=== PATIENT | male | born 1960 | race Caucasian/White ===

== ENCOUNTER 2024-02-26 09:56 | Emergency (ER) | payer MEDICARE, SELFPAY ==
[2024-02-26 09:57] VITALS: BP 171/96; PULSE 70; RESP 14; TEMP 36.4; O2SAT 98; BMI 24.3
--- NOTE | 2024-02-26 10:12 | DI.CT.S_ITS ---
PROCEDURE: CT HEAD/BRAIN WO CON INDICATIONS: left sided numbness improving TECHNIQUE: Noncontrast 4.5 mm thick angled axial sections acquired from the foramen magnum to the vertex, with coronal and sagittal reformats. For radiation dose reduction, the following was used: automated exposure control, adjustment of mA and/or kV according to patient size. COMPARISON: [facility], CT, CT ANGIO HEAD AND NECK, 02/26/2024, 10:17. FINDINGS: Image quality: Mild streak artifact can be seen through the skull base. CSF spaces: Basal cisterns are patent. No extra-axial fluid collections. The ventricles are symmetric in size and shape. Brain: No intracranial bleeds or masses. There is cerebral volume loss for age, with resultant ventricular and sulcal prominence. There are periventricular and deep white matter chronic small vessel ischemic changes. There is intracranial internal carotid artery atherosclerosis. Skull and face: Calvarium and visualized facial bones appear intact, without suspicious lesions. Sinuses: Visualized sinuses and mastoids are clear. IMPRESSION: No acute intracranial hemorrhage is seen. No acute intracranial pathology. If there is strong clinical suspicion for an acute stroke, please consider a brain MRI for further evaluation, as it is more sensitive (assuming that there is no contraindication to MRI). Dictated by: Jhonathan Castellanos M.D. on 02/26/2024 at 9:37 Approved by: Jhonathan Castellanos M.D. on 02/26/2024 at 9:38
--- NOTE | 2024-02-26 10:12 | DI.CT.S_ITS ---
PROCEDURE: CT ANGIO HEAD AND NECK INDICATIONS: let sided numbess TECHNIQUE: After the administration of intravenous contrast, 1 mm thick sections acquired from the aortic arch through the [place] of [place]. 3-dimensional dwrsxfw-utwzeklaz-gbolhrpxll (MIP) and/or volume rendering reformats were acquired of the central intracranial vasculature and neck separately. For radiation dose reduction, the following was used: automated exposure control, adjustment of mA and/or kV according to patient size. COMPARISON: [facility], CT, CT HEAD/BRAIN WO CON, 02/26/2024, 10:17. FINDINGS: Image quality: There is streak artifact seen through the level of the shoulders. BRAIN: CSF spaces: Ventricles are normal in size and shape. Basal cisterns are patent. No extra-axial fluid collections. Brain: No significant abnormality of the brain can be seen. Skull and face: Calvarium and facial bones appear intact, without suspicious lesions. Orbits appear normal. Sinuses: Sinuses and mastoids are clear. HEAD CT ANGIOGRAPHY: Anterior circulation: Intracranial internal carotid arteries are normal in size and flow. The flow within the paired anterior cerebral arteries is normal and symmetric. The flow within the middle cerebral arteries is normal and symmetric. The anterior communicating artery is not well seen. No aneurysms are seen. Posterior circulation: Visualized portions of the vertebral arteries demonstrate normal caliber, and join to form a normal appearing basilar artery. There is a prominent left posterior communicating artery seen, with an accompanying diminutive left P1 segment. This is attributed to a type origin of the right posterior cerebral artery, which is considered to be a normal developmental variant of typically no clinical consequence. The flow within the posterior cerebral arteries is normal and symmetric. No aneurysms are seen. NECK CT ANGIOGRAPHY: Carotid system: The great vessels demonstrate a conventional anatomy as they arise from the aortic arch. The origins of the common carotid arteries appear patent. The common carotid arteries demonstrate normal caliber and courses. The bifurcation regions are both widely patent. The internal carotid arteries demonstrate normal calibers and courses. Posterior circulation: The origins of the vertebral arteries both appear widely patent. The more superior extracranial portions of both vertebral arteries also demonstrate normal courses and calibers. Soft tissues: Visualized neck soft tissues demonstrate no suspicious abnormalities. Bones: No suspicious bony lesions. Visualized cervical spine appears normally aligned. Moderate lower cervical spine degenerative change can be seen. IMPRESSION: No significant intracranial arterial abnormality is seen. No significant abnormality is seen within the arteries of the neck. Any quantitative measurements of stenosis were performed using NASCET criteria. Dictated by: Jhonathan Castellanos M.D. on 02/26/2024 at 9:39 Approved by: Jhonathan Castellanos M.D. on 02/26/2024 at 9:41
--- NOTE | 2024-02-26 10:13 | DI.RAD.S_ITS ---
PROCEDURE: XR CHEST 1V INDICATIONS: tia TECHNIQUE: One view of the chest was acquired. COMPARISON: None. FINDINGS: Surgical changes and devices: None. Lungs and pleura: Lungs are clear. No pleural effusions or pneumothorax. Mediastinum: Mediastinal contours appear normal. Heart size is normal. Bones and chest wall: No suspicious bony lesions. Overlying soft tissues appear unremarkable. IMPRESSION: No acute cardiopulmonary abnormality is seen. Dictated by: Imtiaz Arvizu M.D. on 02/26/2024 at 10:59 Approved by: Imtiaz Arvizu M.D. on 02/26/2024 at 10:59
[2024-02-26] MEDS: ASPIRIN 81 MG CHEW TAB 324 MG PO (10:19)
[2024-02-26 10:23] LABS: Add Manual Diff / Slide Review NO; Basophils Absolute Auto 100 /uL (0-100); Basophils Percent Auto 0.9 % (0-2); Eosinophils Absolute Auto 100 /uL (0-450); Eosinophils Percent Auto 2.1 % (2-4); Hematocrit 44.9 % (41-53); Hemoglobin 15.5 g/dL (13.5-17.5); Lymphocytes Absolute Auto 2100 /uL (1100-4500); Lymphocytes Percent Auto 36.4 % (25-40); Mean Corpuscular HGB Conc 34.5 % (30-36); Mean Corpuscular Hemoglobin 32.5 PG (26-34); Mean Corpuscular Volume 94.1 fL (80-100); Monocytes Absolute Auto 500 /uL (0-900); Monocytes Percent Auto 8.3 % (3-14); Neutrophils Absolute Auto 3100 /uL (1500-7000); Neutrophils Percent Auto 52.3 % (50-75); Platelet Count 210 X10^3/uL (150-400); Red Blood Cell Count 4.77 X10^6/uL (4.5-5.9); Red Cell Distribution Width 13.5 % (11.6-14.8); White Blood Cell Count 5.9 X10^3/uL (4.5-11.0)
[2024-02-26 10:35] LABS: Alanine Aminotransferase 35 IU/L (<50); Albumin 4.3 g/dL (3.5-5.0); Albumin Globulin Ratio 1.3 (1.0-2.8); Alkaline Phosphatase 53 U/L (38-126); Aspartate Aminotransferase 37 IU/L (17-59); Bilirubin Total 0.7 mg/dL (0.2-1.3); Blood Urea Nitrogen 20 mg/dL (9-20); Carbon Dioxide 25 mmol/L (22-32); Chloride 110 mmol/L (98-107); Creatine Kinase 260 U/L (55-170); Estimated Glomerular Filt Rate > 60 mL/min (>60); Globulin 3.4 g/dL (1.7-4.1); Glucose 84 mg/dL (80-110); HEMOLYSIS < 15 (0-50); Lipase 80 U/L (23-300); Potassium 4.3 mmol/L (3.4-5.1); Sodium 140 mmol/L (137-145); Total Protein 7.7 g/dL (6.3-8.2)
[2024-02-26 10:46] LABS: Troponin I < 0.012 ng/mL (0.01-0.034)
--- NOTE | 2024-02-26 10:47 | ED.NEUROSD ---
HPI - Neuro Symptoms/Deficit General Chief Complaint: Neuro Symptoms/Deficit Stated Complaint: thinks TIA does have a history of TIA Time Seen by Provider: 02/26/24 10:00 Source: patient and family Mode of arrival: Ambulatory History of Present Illness HPI Narrative: Patient is 63-year-old male history of TIA hypertension hyperlipidemia but noncompliant with medication presenting to left sided tingling. Last known well 8:50 a.m. reports having tingling down his left side. He may had some symptoms in his leg with did not have any weakness or ataxia issues. He now has persistent tingling in 1 of his fingers no weakness or visual changes. No speech difficulty or facial droop. Previously received tPA, for what was thought to be a stroke but family states that it was downgraded to a TIA. He denies any chest pain shortness of breath On Anticoagulants: No Related Data Allergies Allergy/AdvReac Type Severity Reaction Status Date / Time No Known Drug Allergies Allergy Verified 02/26/24 10:05 Review of Systems Hematologic/Lymphatic On Anticoagulants: No Exam Initial Vital Signs Initial Vital Signs: Vital Signs Temperature 97.6 F 02/26/24 09:57 Pulse Rate 70 02/26/24 09:57 Respiratory Rate 14 02/26/24 09:57 Blood Pressure 171/96 H 02/26/24 09:57 Pulse Oximetry 98 02/26/24 09:57 Oxygen Delivery Method Room Air 02/26/24 09:57 GENERAL: Alert 63-year-old male and in no acute distress. HEENT: Head atraumatic,EOMI, pupils reactive, face symmetric, moist mucous membranes CARDIOVASCULAR: Regular rate and rhythm without murmurs, rubs or gallops. RESPIRATORY: Breath sounds equal bilaterally, no wheezes rales or rhonchi. ABDOMEN: Soft, nontender. Normoactive bowel sounds all 4 quadrants. No guarding or rebound. EXTREMITIES: Normal range of motion, no clubbing or edema. Neurovascularly intact NEUROLOGICAL: Alert and oriented x4.Normal gait and speech. Cranial nerves II through XII grossly intact. Good tstjcp-ui-vyor, good rdqn-bd-zcgc, strength equal bilaterally, no dysarthria or aphasia, sensation in tact to soft touch bilaterally, no visual changes, no facial droop SKIN: Warm, dry, no laceration, no petechiae, no rashes or lesions. Scores NIH Stroke Scale Level of Conciousness: Alert, keenly responsive Ask month/age: Answers both questions correctly. Open/close eyes, close hand: Performs both tasks correctly Best gaze horizontal: Normal Visual abreu: No visual loss Facial palsy: Normal symetrical movement Left arm drift: No drift for full 10 sec Right arm drift: No drift for full 10 sec Left leg drift: No drift for full 5 sec Right leg drift: No drift for full 5 sec Limb ataxia: Absent Sensory on face/arms/legs: Normal, no sensory loss Best language: No aphasia, normal Dysarthria: Normal Extinction or inattention: No abnormality Total NIH Stroke scale score: 0 Course Orders Ordered: ED Orders 02/26/24 10:10 Complete Blood Count AUTO DIFF Stat Comprehensive Metabolic Panel Stat Lipase Stat Troponin & CK Cardiac Panel Stat 02/26/24 10:12 CT angio head and neck Stat CT head/brain wo con Stat 02/26/24 10:13 XR chest 1V Stat 02/26/24 10:44 EKG-12 Lead Stat Discontinued Medications Aspirin (Aspirin 81 Mg Chew Tab) 324 mg PO NOW ONE Stop: 02/26/24 10:13 Last Admin: 02/26/24 10:19 Dose: 324 mg Documented By: RC Vital Signs Vital signs: Vital Signs - 8 hr 02/26/24 09:57 02/26/24 11:22 02/26/24 12:05 Temperature 97.6 F 98 F Pulse Rate 70 56 L 60 Respiratory Rate 14 20 20 Blood Pressure 171/96 H 130/84 146/87 H Pulse Oximetry 98 97 98 Oxygen Delivery Method Room Air Room Air Room Air MDM - Neuro Symptoms/Deficit Lab Data 02/26/24 10:10 02/26/24 10:10 Labs: Lab Results 02/26/24 Range/Units 10:10 WBC 5.9 (4.5-11.0) X10^3/uL RBC 4.77 (4.5-5.9) X10^6/uL Hgb 15.5 (13.5-17.5) g/dL Hct 44.9 (41-53) % MCV 94.1 (80-100) fL MCH 32.5 (26-34) PG MCHC 34.5 (30-36) % RDW 13.5 (11.6-14.8) % Plt Count 210 (150-400) X10^3/uL Neut % (Auto) 52.3 (50-75) % Lymph % (Auto) 36.4 (25-40) % [place] % (Auto) 8.3 (3-14) % Eos % (Auto) 2.1 (2-4) % Baso % (Auto) 0.9 (0-2) % Neut # (Auto) 3100 (8842-1179) /uL Lymph # (Auto) 2100 (7301-7749) /uL [place] # (Auto) 500 (0-900) /uL Eos # (Auto) 100 (0-450) /uL Baso # (Auto) 100 (0-100) /uL Sodium 140 (137-145) mmol/L Potassium 4.3 (3.4-5.1) mmol/L Chloride 110 H (98-107) mmol/L Carbon Dioxide 25 (22-32) mmol/L BUN 20 (9-20) mg/dL Creatinine 1.25 (0.66-1.25) mg/dL Estimated GFR > 60 (>60) mL/min BUN/Creatinine Ratio 16.0 (6-22) Glucose 84 (80-110) mg/dL Calcium 10.0 (8.4-10.2) mg/dL Total Bilirubin 0.7 (0.2-1.3) mg/dL AST 37 (17-59) IU/L ALT 35 (<50) IU/L Alkaline Phosphatase 53 (38-126) U/L Total Creatine Kinase 260 H (55-170) U/L Troponin I < 0.012 (0.01-0.034) ng/mL Total Protein 7.7 (6.3-8.2) g/dL Albumin 4.3 (3.5-5.0) g/dL Globulin 3.4 (1.7-4.1) g/dL Albumin/Globulin Ratio 1.3 (1.0-2.8) Lipase 80 (23-300) U/L Imaging Data CT scan - head: Radiologist's Impression: PROCEDURE: CT HEAD/BRAIN WO CON INDICATIONS: left sided numbness improving TECHNIQUE: Noncontrast 4.5 mm thick angled axial sections acquired from the foramen magnum to the vertex, with coronal and sagittal reformats. For radiation dose reduction, the following was used: automated exposure control, adjustment of mA and/or kV according to patient size. COMPARISON: [facility], CT, CT ANGIO HEAD AND NECK, 02/26/2024, 10:17. FINDINGS: Image quality: Mild streak artifact can be seen through the skull base. CSF spaces: Basal cisterns are patent. No extra-axial fluid collections. The ventricles are symmetric in size and shape. Brain: No intracranial bleeds or masses. There is cerebral volume loss for age, with resultant ventricular and sulcal prominence. There are periventricular and deep white matter chronic small vessel ischemic changes. There is intracranial internal carotid artery atherosclerosis. Skull and face: Calvarium and visualized facial bones appear intact, without suspicious lesions. Sinuses: Visualized sinuses and mastoids are clear. IMPRESSION: No acute intracranial hemorrhage is seen. No acute intracranial pathology. If there is strong clinical suspicion for an acute stroke, please consider a brain MRI for further evaluation, as it is more sensitive (assuming that there is no contraindication to MRI). Dictated by: Jhonathan Castellanos M.D. on 02/26/2024 at 9:37 CTA - brain/neck: Radiologist's Impression: PROCEDURE: CT ANGIO HEAD AND NECK INDICATIONS: let sided numbess TECHNIQUE: After the administration of intravenous contrast, 1 mm thick sections acquired from the aortic arch through the [place] of [place]. 3-dimensional fskghql-gditlgglw-blxshfprjk (MIP) and/or volume rendering reformats were acquired of the central intracranial vasculature and neck separately. For radiation dose reduction, the following was used: automated exposure control, adjustment of mA and/or kV according to patient size. COMPARISON: [facility], CT, CT HEAD/BRAIN WO CON, 02/26/2024, 10:17. FINDINGS: Image quality: There is streak artifact seen through the level of the shoulders. BRAIN: CSF spaces: Ventricles are normal in size and shape. Basal cisterns are patent. No extra-axial fluid collections. Brain: No significant abnormality of the brain can be seen. Skull and face: Calvarium and facial bones appear intact, without suspicious lesions. Orbits appear normal. Sinuses: Sinuses and mastoids are clear. HEAD CT ANGIOGRAPHY: Anterior circulation: Intracranial internal carotid arteries are normal in size and flow. The flow within the paired anterior cerebral arteries is normal and symmetric. The flow within the middle cerebral arteries is normal and symmetric. The anterior communicating artery is not well seen. No aneurysms are seen. Posterior circulation: Visualized portions of the vertebral arteries demonstrate normal caliber, and join to form a normal appearing basilar artery. There is a prominent left posterior communicating artery seen, with an accompanying diminutive left P1 segment. This is attributed to a type origin of the right posterior cerebral artery, which is considered to be a normal developmental variant of typically no clinical consequence. The flow within the posterior cerebral arteries is normal and symmetric. No aneurysms are seen. NECK CT ANGIOGRAPHY: Carotid system: The great vessels demonstrate a conventional anatomy as they arise from the aortic arch. The origins of the common carotid arteries appear patent. The common carotid arteries demonstrate normal caliber and courses. The bifurcation regions are both widely patent. The internal carotid arteries demonstrate normal calibers and courses. Posterior circulation: The origins of the vertebral arteries both appear widely patent. The more superior extracranial portions of both vertebral arteries also demonstrate normal courses and calibers. Soft tissues: Visualized neck soft tissues demonstrate no suspicious abnormalities. Bones: No suspicious bony lesions. Visualized cervical spine appears normally aligned. Moderate lower cervical spine degenerative change can be seen. IMPRESSION: No significant intracranial arterial abnormality is seen. No significant abnormality is seen within the arteries of the neck. Any quantitative measurements of stenosis were performed using NASCET criteria. Dictated by: Jhonathan Castellanos M.D. on 02/26/2024 at 9:39 ECG Data Interpretation: Sinus rhythm rate 58 IA interval 192 QRS [address] MDM Narrative Medical decision making narrative: Patient 63-year-old male history of TIA/CVA with tPA presents today with left-sided numbness. Symptoms have mostly resolved he is NIH stroke scale of 0. He has not a tPA candidate. He is noncompliant with his medication. Initially he was hypertensive 171/96. Blood work has been reviewed overall reassuring without any clinical significant abnormalities Imaging reviewed head CT CT angio and chest x-ray no acute stroke or significant stenosis Patient is given aspirin here in the ED I spoke with Dr. Liu on the phone about admission for TIA. He agreed he actually came down to ED to evaluate patient however patient does not want to be admitted. Spoke with patient myself discussed risks of stroke. He and his both understand. They have an appointment tomorrow with PCP. He agrees to be compliant with medications take aspirin daily. He also is given information about acute stroke symptoms and to return to ED immediately. Discharge Plan Departure Patient Disposition: Home Clinical Impression: Transient cerebral ischemia Instructions: DI for Transient Ischemic Attack Activity Restrictions/Additional Instructions: *You have been diagnosed with TIA *What to do: At this time you were offered admission however Dr. Lilly said that you could see him in the office tomorrow. You will need outpatient MRI. You must take your medicine daily. *Continue to take medications as directed Aspirin daily *Follow up with your primary care provider in 2-3 days or call [phone] *Return to ER if you should have increasing numbness tingling weakness or any new, worsening or concerning symptoms Referrals: Flynn Sweet MD [Primary Care Provider] - Stand Alone Forms: Patient Portal/API
[2024-02-26 11:22] VITALS: BP 130/84; PULSE 56; RESP 20; O2SAT 97
--- NOTE | 2024-02-26 11:58 | PC.NURSE ---
ESTEBAN RN notified pt will be dc'd
[2024-02-26 12:05] VITALS: BP 146/87; PULSE 60; RESP 20; TEMP 36.6; O2SAT 98
== END 2024-02-26 12:08 | disposition home or self-care (01) ==
PROVIDERS: Emergency Provider Emergency Medicine; PCP Family Medicine
DX: G45.9 Transient cerebral ischemic attack, unspecified (principal)
CPT/HCPCS: 36415; 70450; 70496; 70498; 71045; 80053; 82550; 83690; 84484; 85025; 93005; 93010; 99284

== ENCOUNTER → 2024-02-29 15:15 | Outpatient (CLI) | payer MEDICARE, SELFPAY ==
--- NOTE | 2024-02-29 16:31 | DI.MRI.S_ITS ---
PROCEDURE: MR STROKE INDICATIONS: Paresthesia of skin TECHNIQUE: Brain: Noncontrast axial T1 spin echo, axial T2 fast spin echo, sagittal and axial FLAIR, coronal T2 fast spin echo, axial gradient echo, axial diffusion and ADC through the brain. MR angiogram: Noncontrast axial 3D [id number]-qyyclu MR angiogram, with maximum intensity projection reformats of the internal carotid arteries and posterior circulation then performed. COMPARISON: None. FINDINGS: Image quality: Excellent. BRAIN: CSF Spaces: Basal cisterns are patent. No extra-axial fluid collections. Ventricles are normal in size and shape. Brain: No midline shift. No intracranial bleeds or mass effects. The brainstem appears normal. Romero/white matter interface appears normal. Diffusion-weighted images demonstrate no acute ischemic insult. No chronic ischemic insults. Normal intravascular flow voids are present. Skull and face: Calvarium has normal marrow signal. Orbits appear normal. Sinuses: Sinuses and mastoids are clear. BRAIN MR ANGIOGRAM: Anterior circulation: Intracranial internal carotid arteries demonstrate normal size and intraluminal flow signal. The flow within the paired anterior cerebral arteries is normal and symmetric. The flow within the middle cerebral arteries is normal and symmetric. The anterior communicating artery is seen. No stenoses, occlusions, or aneurysms. Posterior circulation: The visualized vertebral arteries demonstrate normal caliber, and join to form a normal appearing basilar artery. The flow within the posterior cerebral arteries is normal and symmetric. Note is made of normal appearing posterior cerebral arteries. No stenoses, occlusions, or aneurysms. IMPRESSION: Normal MRI of the brain. No acute infarct, hemorrhage or mass lesion. Normal MR angiogram of the brain. No large vessel occlusion, aneurysm or vascular malformation. Normal MR angiogram of the neck. No significant stenosis Approved by: Brenden Mendoza M.D. on 03/01/2024 at 14:18
== END ==
LOC: MRI 15:17
PROVIDERS: PCP Family Medicine; Referring Provider Family Medicine; Visit Provider Family Medicine
DX: R29.818 Other symptoms and signs involving the nervous system (principal); R20.2 Paresthesia of skin; G45.9 Transient cerebral ischemic attack, unspecified; Z86.73 Personal history of transient ischemic attack (TIA), and cerebral infarction without residual deficits
CPT/HCPCS: 70544; 70549; 70553; A9579

== ENCOUNTER → 2024-03-09 07:27 | Outpatient (CLI) | payer MEDICARE, SELFPAY ==
[2024-03-09 08:25] LABS: Add Manual Diff / Slide Review NO; Basophils Absolute Auto 100 /uL (0-100); Basophils Percent Auto 0.9 % (0-2); Eosinophils Absolute Auto 200 /uL (0-450); Hematocrit 45.5 % (41-53); Hemoglobin 15.7 g/dL (13.5-17.5); Lymphocytes Absolute Auto 2100 /uL (1100-4500); Lymphocytes Percent Auto 36.1 % (25-40); Mean Corpuscular HGB Conc 34.6 % (30-36); Mean Corpuscular Hemoglobin 32.5 PG (26-34); Monocytes Absolute Auto 400 /uL (0-900); Monocytes Percent Auto 7.8 % (3-14); Neutrophils Absolute Auto 2900 /uL (1500-7000); Neutrophils Percent Auto 51.2 % (50-75); Platelet Count 222 X10^3/uL (150-400); Red Blood Cell Count 4.84 X10^6/uL (4.5-5.9); Red Cell Distribution Width 13.5 % (11.6-14.8); White Blood Cell Count 5.7 X10^3/uL (4.5-11.0)
[2024-03-09 08:44] LABS: Erythrocyte Sedimentation Rate 3 MM/HR (0-15)
[2024-03-09 09:17] LABS: HEMOLYSIS < 15 (0-50); Iron 119 ug/dL (49-181)
[2024-03-09 09:19] LABS: Alanine Aminotransferase 37 IU/L (<50); Albumin 4.5 g/dL (3.5-5.0); Albumin Globulin Ratio 1.4 (1.0-2.8); Alkaline Phosphatase 56 U/L (38-126); Aspartate Aminotransferase 37 IU/L (17-59); BUN Creatinine Ratio 17.6 (6-22); Bilirubin Total 0.9 mg/dL (0.2-1.3); Blood Urea Nitrogen 23 mg/dL (9-20); Calcium 9.8 mg/dL (8.4-10.2); Carbon Dioxide 29 mmol/L (22-32); Chloride 108 mmol/L (98-107); Cholesterol 174 mg/dL (140-199); Estimated Glomerular Filt Rate > 60 mL/min (>60); Globulin 3.2 g/dL (1.7-4.1); Glucose 112 mg/dL (80-110); HDL Cholesterol 59 mg/dL (40-60); HEMOLYSIS < 15 (0-50); LDL Cholesterol Calculated 92 mg/dL (<100); Potassium 4.5 mmol/L (3.4-5.1); Sodium 140 mmol/L (137-145); Total Protein 7.7 g/dL (6.3-8.2); Triglycerides 116 mg/dL (35-150)
[2024-03-09 09:23] LABS: High Sensitivity CRP - Cardiac 1.2 mg/L (1.0-3.0)
[2024-03-09 09:28] LABS: Percent Iron Saturation 35 % (20-50); Total Iron Binding Capacity 336 ug/dL (261-462); Transferrin 274 mg/dL (206-381)
[2024-03-09 09:33] LABS: Free T3, Triiodothyronine Free 4.31 pg/mL (2.77-5.27)
[2024-03-09 09:47] LABS: Thyroid Stimulating Hormone 2.42 uIU/mL (0.47-4.68)
[2024-03-09 09:49] LABS: Cortisol AM (Before 10AM) 11.9 ug/dL (4.46-22.7); Prostate Specific Antigen 1.97 ng/mL (0.10-4.00)
[2024-03-09 09:51] LABS: Testosterone 319 ng/dL (71.8-623)
[2024-03-09 09:54] LABS: Hemoglobin A1C% w Est Avg Glu 5.4 % (4.0-6.0)
[2024-03-09 10:06] LABS: Vitamin D 25 Hydroxy (D3) 59.3 ng/mL (30.0-100.0)
[2024-03-09 10:08] LABS: Vitamin B12 775 pg/mL (239-931)
[2024-03-09 20:20] LABS: Estradiol, Total 32.1 pg/mL
[2024-03-10 19:36] LABS: Insulin Level Total 6.7 uIU/mL (2.6-24.9)
== END ==
PROVIDERS: PCP Family Medicine; Referring Provider General Practice; Visit Provider General Practice
DX: E03.9 Hypothyroidism, unspecified (principal); R53.83 Other fatigue; R14.0 Abdominal distension (gaseous)
CPT/HCPCS: 36415; 80053; 80061; 82306; 82533; 82607; 82627; 82670; 83036; 83090; 83525; 83540; 83550; 84153; 84403; 84443; 84481; 85025; 85651; 86140

== ENCOUNTER 2024-08-28 16:45 | Emergency (ER) | payer MEDICARE, SELFPAY ==
[2024-08-28 16:56] VITALS: BP 142/85; PULSE 77; RESP 18; TEMP 36.2; O2SAT 98; BMI 25.0
--- NOTE | 2024-08-28 17:08 | DI.RAD.S_ITS ---
PROCEDURE: XR CHEST 1V INDICATIONS: chest pain TECHNIQUE: One view of the chest was acquired. COMPARISON: [facility], CR, XR CHEST 1V, 02/26/2024, 10:32. FINDINGS: Surgical changes and devices: None. Lungs and pleura: Lungs are clear. No pleural effusions or pneumothorax. Mediastinum: Mediastinal contours appear normal. Heart size is normal. Bones and chest wall: No suspicious bony lesions. Overlying soft tissues appear unremarkable. IMPRESSION: No acute cardiopulmonary abnormality is seen. Approved by: Brenden Mendoza M.D. on 08/28/2024 at 17:38
--- NOTE | 2024-08-28 17:18 | EKG_ITS ---
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
[2024-08-28] MEDS: ACETAMINOPHEN 325 MG TABLET 650 MG PO (17:32)
[2024-08-28] MEDS: KETOROLAC 30 MG/ML VIAL 15 MG IV (17:33)
[2024-08-28 17:39] LABS: Add Manual Diff / Slide Review NO; Basophils Absolute Auto 100 /uL (0-100); Basophils Percent Auto 0.4 % (0-2); Eosinophils Absolute Auto 200 /uL (0-450); Eosinophils Percent Auto 1.8 % (2-4); Hematocrit 44.5 % (41-53); Hemoglobin 15.3 g/dL (13.5-17.5); Lymphocytes Absolute Auto 2300 /uL (1100-4500); Lymphocytes Percent Auto 18.6 % (25-40); Mean Corpuscular HGB Conc 34.4 % (30-36); Mean Corpuscular Hemoglobin 32.6 PG (26-34); Mean Corpuscular Volume 94.8 fL (80-100); Monocytes Absolute Auto 1200 /uL (0-900); Monocytes Percent Auto 9.8 % (3-14); Neutrophils Absolute Auto 8700 /uL (1500-7000); Neutrophils Percent Auto 69.4 % (50-75); Platelet Count 194 X10^3/uL (150-400); Red Blood Cell Count 4.69 X10^6/uL (4.5-5.9); Red Cell Distribution Width 14.1 % (11.6-14.8); White Blood Cell Count 12.6 X10^3/uL (4.5-11.0)
[2024-08-28 17:45] LABS: D Dimer 288 ng/ml (<500)
[2024-08-28 17:51] LABS: Alanine Aminotransferase 29 IU/L (<50); Albumin 4.7 g/dL (3.5-5.0); Albumin Globulin Ratio 1.5 (1.0-2.8); Alkaline Phosphatase 58 U/L (38-126); Aspartate Aminotransferase 36 IU/L (17-59); BUN Creatinine Ratio 16.7 (6-22); Bilirubin Total 0.8 mg/dL (0.2-1.3); Blood Urea Nitrogen 23 mg/dL (9-20); Calcium 9.7 mg/dL (8.4-10.2); Carbon Dioxide 24 mmol/L (22-32); Chloride 106 mmol/L (98-107); Creatine Kinase 124 U/L (55-170); Estimated Glomerular Filt Rate 56 mL/min (>60); Globulin 3.2 g/dL (1.7-4.1); Glucose 89 mg/dL (80-110); HEMOLYSIS 29 (0-50); Lipase 58 U/L (23-300); Potassium 4.1 mmol/L (3.4-5.1); Sodium 140 mmol/L (137-145); Total Protein 7.9 g/dL (6.3-8.2)
[2024-08-28 18:01] LABS: Troponin I 0.015 ng/mL (0.01-0.034)
[2024-08-28 18:14] VITALS: PULSE 71; O2SAT 99
[2024-08-28 18:15] VITALS: BP 150/77; PULSE 65; O2SAT 99
[2024-08-28 18:30] VITALS: BP 134/68; PULSE 61; RESP 12; O2SAT 99
[2024-08-28 19:00] VITALS: BP 118/66; PULSE 61; RESP 17; O2SAT 96
[2024-08-28 19:09] LABS: Influenza A - CEPHEID Flu A NEGATIVE (NEGATIVE); Influenza B - CEPHEID Flu B NEGATIVE (NEGATIVE); Respiratory Syncytial Virus Negative (Negative)
[2024-08-28 19:11] LABS: COVID-19 CEPHEID 4-PLEX PCR Negative (Negative)
[2024-08-28 19:30] VITALS: BP 116/65; PULSE 61; RESP 19; O2SAT 96
--- NOTE | 2024-08-28 19:41 | ED.EXTPRO ---
HPI - Extremity Problem General Chief complaint: Extremity Problem,Nontraumatic Stated complaint: rt should px, unsteady, shaky Time Seen by Provider: 08/28/24 17:09 Source: patient and family Mode of arrival: Wheelchair History of Present Illness HPI Narrative: Patient is a 64-year-old male here for evaluation of right-sided shoulder pain/right upper back discomfort. No chest pain. No fevers. No vomiting. No abdominal pain. No skin changes. Symptoms have actually happened in the past but have never been this bad. He did recently have an extended drive home from [place]. He stated that today there was a period of time when the pain was so bad that it took him to his knees. He now states that the discomfort is almost gone. When the symptoms happened they do last several minutes. He went to a neighbor who is an lift slab operator and massage therapist who thought that maybe he should come and get his gallbladder evaluated. Related Data Home Medications Medication Instructions Recorded Confirmed albuterol sulfate 90 mcg/actuation 1 inh inhalation ONCE 06/02/24 06/02/24 aerosol inhaler atorvastatin 10 mg tablet (Lipitor) 10 mg PO DAILY 06/02/24 06/02/24 salmeterol 50 mcg/dose blister 1 inh inhalation BID 06/02/24 06/02/24 powder for inhalation (Serevent Diskus) Previous Rx's Medication Instructions Recorded ipratropium bromide 17 2 puff inhalation TID #12.9 grams 06/02/24 mcg/actuation HFA aerosol inhaler Allergies Allergy/AdvReac Type Severity Reaction Status Date / Time No Known Drug Allergies Allergy Verified 08/28/24 16:56 Review of Systems Review of Systems ROS Unobtainable: All systems reviewed & are unremarkable except as noted in HPI and below Patient History Medical History Insomnia Dyslipidemia Asthma Social History Smoking Status: Never smoker Smoking Status: Never smoker alcohol intake frequency: 0-2 drinks per day Substance Use Type: does not use Exam Initial Vital Signs Initial Vital Signs: Vital Signs Temperature 97.1 F L 08/28/24 16:56 Pulse Rate 77 08/28/24 16:56 Respiratory Rate 18 08/28/24 16:56 Blood Pressure 142/85 H 08/28/24 16:56 Pulse Oximetry 98 08/28/24 16:56 Oxygen Delivery Method Room Air 08/28/24 16:56 Const General: cooperative, comfortable and No ill appearing HENCA Head: normal to inspection and normocephalic Resp Effort & Inspection: normal respiratory effort Auscultation: clear to auscultation bilaterally Cardio Rate: regular rate Rhythm: regular rhythm Skin General: no rashes or lesions noted Neuro General: patient alert, patient awake, patient oriented x3 and moves all extremities Extrem Other: No gross deformities. No discomfort with palpation of the structures throughout the shoulder. Right elbow is unremarkable. No discomfort with palpation of the superior aspect of the shoulder over the rhomboids although it was around the rhomboids where he describes where the tenderness was located. Course Orders Ordered: ED Orders 08/28/24 17:08 XR chest 1V Stat EKG-12 Lead Stat 08/28/24 17:27 Complete Blood Count AUTO DIFF Stat Comprehensive Metabolic Panel Stat D Dimer Stat Lipase Stat Troponin & CK Cardiac Panel Stat 08/28/24 18:28 Covid-19 + FLU A/B + RSV - PCR Stat Discontinued Medications Acetaminophen (Acetaminophen 325 Mg Tablet) 650 mg PO NOW ONE Stop: 08/28/24 17:10 Last Admin: 08/28/24 17:32 Dose: 650 mg Documented By: DAVID Ketorolac Tromethamine (Ketorolac 30 Mg/Ml Vial) 15 mg IV NOW ONE Stop: 08/28/24 17:10 Last Admin: 08/28/24 17:33 Dose: 15 mg Documented By: DAVID Vital Signs Vital signs: Vital Signs - 8 hr 08/28/24 16:56 08/28/24 18:14 08/28/24 18:15 Temperature 97.1 F L Pulse Rate 77 71 65 Respiratory Rate 18 Blood Pressure 142/85 H Pulse Oximetry 98 99 99 Oxygen Delivery Method Room Air 08/28/24 18:15 08/28/24 18:30 08/28/24 18:30 Temperature Pulse Rate 61 Respiratory Rate 12 Blood Pressure 150/77 H 134/68 Pulse Oximetry 99 Oxygen Delivery Method Room Air 08/28/24 19:00 08/28/24 19:00 08/28/24 19:30 Temperature Pulse Rate 61 61 Respiratory Rate 17 19 Blood Pressure 118/66 Pulse Oximetry 96 96 Oxygen Delivery Method 08/28/24 19:30 Temperature Pulse Rate Respiratory Rate Blood Pressure 116/65 Pulse Oximetry Oxygen Delivery Method MDM - Extremity (Nontraumatic) Lab Data 08/28/24 17:27 08/28/24 17:27 Labs: Lab Results 08/28/24 08/28/24 Range/Units 17:27 18:28 WBC 12.6 H (4.5-11.0) X10^3/uL RBC 4.69 (4.5-5.9) X10^6/uL Hgb 15.3 (13.5-17.5) g/dL Hct 44.5 (41-53) % MCV 94.8 (80-100) fL MCH 32.6 (26-34) PG MCHC 34.4 (30-36) % RDW 14.1 (11.6-14.8) % Plt Count 194 (150-400) X10^3/uL Neut % (Auto) 69.4 (50-75) % Lymph % (Auto) 18.6 L (25-40) % [place] % (Auto) 9.8 (3-14) % Eos % (Auto) 1.8 L (2-4) % Baso % (Auto) 0.4 (0-2) % Neut # (Auto) 8700 H (2923-5860) /uL Lymph # (Auto) 2300 (6540-3836) /uL [place] # (Auto) 1200 H (0-900) /uL Eos # (Auto) 200 (0-450) /uL Baso # (Auto) 100 (0-100) /uL D-Dimer 288 (<500) ng/ml Sodium 140 (137-145) mmol/L Potassium 4.1 (3.4-5.1) mmol/L Chloride 106 (98-107) mmol/L Carbon Dioxide 24 (22-32) mmol/L BUN 23 H (9-20) mg/dL Creatinine 1.38 H (0.66-1.25) mg/dL Estimated GFR 56 L (>60) mL/min BUN/Creatinine Ratio 16.7 (6-22) Glucose 89 (80-110) mg/dL Calcium 9.7 (8.4-10.2) mg/dL Total Bilirubin 0.8 (0.2-1.3) mg/dL AST 36 (17-59) IU/L ALT 29 (<50) IU/L Alkaline Phosphatase 58 (38-126) U/L Total Creatine Kinase 124 (55-170) U/L Troponin I 0.015 (0.01-0.034) ng/mL Total Protein 7.9 (6.3-8.2) g/dL Albumin 4.7 (3.5-5.0) g/dL Globulin 3.2 (1.7-4.1) g/dL Albumin/Globulin Ratio 1.5 (1.0-2.8) Lipase 58 (23-300) U/L SARS-CoV-2 (PCR) Negative (Negative) Influenza A (RT-PCR) Flu a negative (NEGATIVE) Influenza B (RT-PCR) Flu b negative (NEGATIVE) RSV (PCR) Negative (Negative) Urine Dip Bedside Urine Glucose Negative Bedside Urine Bilirubin - Negative Bedside Urine Ketone - Negative Urine Specific [place] 1.025 Bedside Urine Occult Blood - Negative Bedside Urine pH 6.0 Bedside Urine Protein - Negative Bedside Urine Urobilinogen - Negative Bedside Urine Nitrite - Negative Bedside Urine Leukocytes - Negative Esterase Imaging Data Chest x-ray: Radiologist's Impression: PROCEDURE: XR CHEST 1V INDICATIONS: chest pain TECHNIQUE: One view of the chest was acquired. COMPARISON: [facility], , XR CHEST 1V, 02/26/2024, 10:32. FINDINGS: Surgical changes and devices: None. Lungs and pleura: Lungs are clear. No pleural effusions or pneumothorax. Mediastinum: Mediastinal contours appear normal. Heart size is normal. Bones and chest wall: No suspicious bony lesions. Overlying soft tissues appear unremarkable. IMPRESSION: No acute cardiopulmonary abnormality is seen. ECG Data Interpretation: Sinus rhythm Ventricular rate is 71 Normal axis Normal QRS Normal QTC No ST T wave changes MDM Narrative Medical decision making narrative: No abdominal tenderness. No right upper quadrant tenderness. Normal LFTs. Normal lipase. Labs unremarkable. Chest x-ray is unremarkable. EKGs unremarkable. D-dimer is negative. Now reports that his symptoms almost completely resolved. Low suspicion for fracture, infection, acute surgical pathology. Unsure of the exact etiology but recommend that he contact his primary doctor for follow-up. He was given return precautions. Discharge Plan Departure Patient Disposition: Home Clinical Impression: Pain of right scapula Instructions: How To Perform RICE (Rest, Ice, Compress, Elevate) Activity Restrictions/Additional Instructions: Continue to take all of your medications as directed. I do recommend that you contact your primary care doctor's office for follow-up. If the pain returns you can take Tylenol and/or ibuprofen. You can continue with other conservative measures such as heat/ice and massage and stretching. Return to the emergency department for new symptoms. Prescriptions: No Action atorvastatin [Lipitor] 10 mg tablet 10 mg PO DAILY albuterol sulfate 90 mcg/actuation HFA aerosol inhaler 1 inh inhalation ONCE Serevent Diskus 50 mcg/dose blister with device 1 inh inhalation BID ipratropium bromide 17 mcg/actuation HFA aerosol inhaler 2 puff inhalation TID Qty: 12.9 1RF Referrals: Flynn Sweet MD [Primary Care Provider] - Stand Alone Forms: Patient Portal/API
== END 2024-08-28 19:52 | disposition home or self-care (01) ==
PROVIDERS: Emergency Medicine; Emergency Provider Emergency Medicine; PCP Family Medicine
DX: M54.6 Pain in thoracic spine (principal); R07.9 Chest pain, unspecified; Z11.52 Encounter for screening for COVID-19
CPT/HCPCS: 0241U; 36415; 71045; 80053; 81003; 82550; 83690; 84484; 85025; 85379; 93005; 96374; 99284; J1885

== ENCOUNTER → 2024-09-29 06:57 | Outpatient (CLI) | payer MEDICARE, SELFPAY ==
[2024-09-29 08:00] LABS: Add Manual Diff / Slide Review NO; Basophils Absolute Auto 100 /uL (0-100); Basophils Percent Auto 0.9 % (0-2); Eosinophils Absolute Auto 300 /uL (0-450); Eosinophils Percent Auto 4.4 % (2-4); Hematocrit 45.9 % (41-53); Hemoglobin 15.7 g/dL (13.5-17.5); Lymphocytes Absolute Auto 2200 /uL (1100-4500); Lymphocytes Percent Auto 34.3 % (25-40); Mean Corpuscular HGB Conc 34.3 % (30-36); Mean Corpuscular Hemoglobin 32.6 PG (26-34); Mean Corpuscular Volume 95.1 fL (80-100); Monocytes Absolute Auto 500 /uL (0-900); Monocytes Percent Auto 7.2 % (3-14); Neutrophils Absolute Auto 3400 /uL (1500-7000); Neutrophils Percent Auto 53.2 % (50-75); Platelet Count 188 X10^3/uL (150-400); Red Blood Cell Count 4.83 X10^6/uL (4.5-5.9); Red Cell Distribution Width 13.5 % (11.6-14.8); White Blood Cell Count 6.5 X10^3/uL (4.5-11.0)
[2024-09-29 08:25] LABS: Alanine Aminotransferase 30 IU/L (<50); Albumin 4.6 g/dL (3.5-5.0); Albumin Globulin Ratio 1.5 (1.0-2.8); Alkaline Phosphatase 58 U/L (38-126); Aspartate Aminotransferase 28 IU/L (17-59); BUN Creatinine Ratio 17.5 (6-22); Bilirubin Total 0.8 mg/dL (0.2-1.3); Blood Urea Nitrogen 22 mg/dL (9-20); C-Reactive Protein Quant < 0.5 mg/dL (<1.0); Calcium 9.9 mg/dL (8.4-10.2); Carbon Dioxide 26 mmol/L (22-32); Chloride 105 mmol/L (98-107); Cholesterol 207 mg/dL (140-199); Estimated Glomerular Filt Rate > 60 mL/min (>60); Glucose 116 mg/dL (80-110); HDL Cholesterol 61 mg/dL (40-60); HEMOLYSIS < 15 (0-50); LDL Cholesterol Calculated 115 mg/dL (<100); Potassium 4.3 mmol/L (3.4-5.1); Sodium 138 mmol/L (137-145); Total Protein 7.6 g/dL (6.3-8.2); Triglycerides 153 mg/dL (35-150)
[2024-09-29 08:33] LABS: Free T3, Triiodothyronine Free 4.04 pg/mL (2.77-5.27)
[2024-09-29 08:34] LABS: Vitamin D 25 Hydroxy (D3) 47.7 ng/mL (30.0-100.0)
[2024-09-29 08:47] LABS: Thyroid Stimulating Hormone 2.71 uIU/mL (0.47-4.68)
[2024-09-29 08:50] LABS: Estradiol, Total 19.1 pg/mL
[2024-09-29 08:53] LABS: Testosterone 189 ng/dL (71.8-623)
[2024-09-29 09:06] LABS: Vitamin B12 736 pg/mL (239-931)
[2024-09-30 08:11] LABS: Homocysteine 11.8 umol/L (0.0-17.2)
[2024-10-01 07:11] LABS: Insulin Level Total 6.8 uIU/mL (2.6-24.9)
== END ==
PROVIDERS: PCP Family Medicine; Referring Provider General Practice; Visit Provider General Practice
DX: R14.0 Abdominal distension (gaseous) (principal); G45.8 Other transient cerebral ischemic attacks and related syndromes; R53.83 Other fatigue; R68.82 Decreased libido; R73.09 Other abnormal glucose
CPT/HCPCS: 36415; 80053; 80061; 82306; 82607; 82627; 82670; 83090; 83525; 84403; 84443; 84481; 85025; 86140

== ENCOUNTER → 2024-10-07 09:47 | Outpatient (CLI) | payer MEDICARE, SELFPAY ==
--- NOTE | 2024-10-07 09:51 | DI.RAD.S_ITS ---
PROCEDURE: XR BONE LENGTH SCANOGRAM INDICATIONS: LEG LENGTH DISCREPANCY, LEG PAIN TECHNIQUE: A single frontal standing view of both lower extremities acquired, with measuring ruler situated between the legs. COMPARISON: None. FINDINGS: Right: Total leg length is 93 cm. Left: Total leg length is 94 cm. IMPRESSION: Leg length as above. Dictated by: Ovidio Herman RRA Interpreted: Elizabeth Lin MD on 10/08/2024 at 12:22 Transcribed by: BERLIN on 10/08/2024 at 12:23 Approved by: Elizabeth Lin MD, PhD on 10/13/2024 at 11:10
== END ==
PROVIDERS: PCP Family Medicine; Referring Provider Family Medicine; Visit Provider Family Medicine
DX: M21.70 Unequal limb length (acquired), unspecified site (principal)
CPT/HCPCS: 77073

== ENCOUNTER 2024-11-14 11:32 | Emergency (ER) | payer MEDICARE, SELFPAY ==
[2024-11-14] VITALS (15 sets, daily range): BP systolic 126–160; BP diastolic 81–94; PULSE 54–104; RESP 14–99; TEMP 35.7; O2SAT 91–99; BMI 25.1
--- NOTE | 2024-11-14 11:56 | DI.CT.S_ITS ---
PROCEDURE: CT STROKE INDICATIONS: Positive BE-FAST, Stroke symptoms TECHNIQUE: Noncontrast 4.5 mm thick angled axial sections acquired from the foramen magnum to the vertex, with coronal reformats. For radiation dose reduction, the following was used: automated exposure control, adjustment of mA and/or kV according to patient size. COMPARISON: None. FINDINGS: Image quality: Diagnostic. CSF spaces: Basal cisterns are patent. No extra-axial fluid collections. Ventricles are normal in size and shape. Brain: No midline shift. No intracranial masses or hemorrhage. Romero-white matter interface is normal. Skull and face: Calvarium and visualized facial bones are intact, without suspicious lesions. Sinuses: Visualized sinuses and mastoids are clear. IMPRESSION: No acute intracranial pathology. Findings were discussed with ordering ED provider Dr. Bang by Dr. Branch at 12:16p.m. on 11/14/2024. This study fulfills neurological imaging criteria for inclusion or exclusion of acute stroke therapies based on available published neurological imaging guidelines. Approved by: Kimber Branch M.D.,Ph.D. on 11/14/2024 at 12:16
--- NOTE | 2024-11-14 11:56 | DI.RAD.S_ITS ---
PROCEDURE: XR CHEST 1V INDICATIONS: Possible stroke TECHNIQUE: One view of the chest was acquired. COMPARISON: [facility], , XR CHEST 1V, 08/28/2024, 17:29. FINDINGS: Surgical changes and devices: None. Lungs and pleura: Lungs are clear. No pleural effusions or pneumothorax. Mediastinum: Mediastinal contours appear normal. Heart size is normal. Bones and chest wall: No suspicious bony lesions. Overlying soft tissues appear unremarkable. IMPRESSION: No acute cardiopulmonary abnormality is seen. Approved by: Kimber Branch M.D.,Ph.D. on 11/14/2024 at 12:25
--- NOTE | 2024-11-14 12:04 | DI.CT.S_ITS ---
PROCEDURE: CT ANGIO HEAD AND NECK INDICATIONS: TIA symptoms TECHNIQUE: After the administration of intravenous contrast, 1 mm thick sections acquired from the aortic arch through the [place]. 3-dimensional lgqrfjj-pvxjowlec-jeczadioub (MIP) and/or volume rendering reformats were acquired of the central intracranial vasculature and neck separately. For radiation dose reduction, the following was used: automated exposure control, adjustment of mA and/or kV according to patient size. COMPARISON: [facility], MR, MR STROKE, 02/29/2024, 15:20. [facility], CT, CT HEAD/BRAIN WO CON, 02/26/2024, 10:17. [facility], CT, CT STROKE, 11/14/2024, 11:57. [facility], CT, CT ANGIO HEAD AND NECK, 02/26/2024, 10:17. FINDINGS: Image quality: Limited by bolus timing, with venous contamination. BRAIN: CSF spaces: Ventricles are normal in size and shape. Basal cisterns are patent. No extra-axial fluid collections. Brain: No significant abnormality of the brain can be seen. Skull and face: Calvarium and facial bones appear intact, without suspicious lesions. Orbits appear normal. Sinuses: Sinuses and mastoids are clear. HEAD CT ANGIOGRAPHY: Anterior circulation: Intracranial internal carotid arteries are normal in size and flow. The flow within the paired anterior cerebral arteries is normal and symmetric. The flow within the middle cerebral arteries is normal and symmetric. The anterior communicating artery is seen. No aneurysms are seen. Posterior circulation: Visualized portions of the vertebral arteries demonstrate normal caliber, and join to form a normal appearing basilar artery. There is a prominent left posterior communicating artery seen, with an accompanying diminutive left P1 segment. This is attributed to a type origin of the right posterior cerebral artery, which is considered to be a normal developmental variant of typically no clinical consequence. The flow within the posterior cerebral arteries is normal and symmetric. No aneurysms are seen. NECK CT ANGIOGRAPHY: Carotid system: The great vessels demonstrate a conventional anatomy as they arise from the aortic arch. The origins of the common carotid arteries appear patent. The common carotid arteries demonstrate normal caliber and courses. The bifurcation regions are both widely patent. The internal carotid arteries demonstrate normal calibers and courses. Posterior circulation: The origins of the vertebral arteries both appear widely patent. The more superior extracranial portions of both vertebral arteries also demonstrate normal courses and calibers. The right vertebral artery is dominant to the left. Soft tissues: Visualized neck soft tissues demonstrate no suspicious abnormalities. Bones: No suspicious bony lesions. Visualized cervical spine appears normally aligned. IMPRESSION: No significant intracranial arterial abnormality is seen. No significant abnormality is seen within the arteries of the neck. 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 Dictated by: Jhonathan Castellanos M.D. on 11/14/2024 at 11:47 Approved by: Jhonathan Castellanos M.D. on 11/14/2024 at 11:50
[2024-11-14 12:11] LABS: Prothrombin Time 11.3 SECONDS (9.4-12.5)
[2024-11-14 12:12] LABS: Add Manual Diff / Slide Review NO; Basophils Absolute Auto 100 /uL (0-100); Basophils Percent Auto 1.3 % (0-2); Eosinophils Absolute Auto 300 /uL (0-450); Eosinophils Percent Auto 4.2 % (2-4); Hematocrit 44.9 % (41-53); Hemoglobin 15.2 g/dL (13.5-17.5); Lymphocytes Absolute Auto 2200 /uL (1100-4500); Lymphocytes Percent Auto 34.8 % (25-40); Mean Corpuscular HGB Conc 33.9 % (30-36); Mean Corpuscular Hemoglobin 32.4 PG (26-34); Mean Corpuscular Volume 95.5 fL (80-100); Monocytes Absolute Auto 500 /uL (0-900); Monocytes Percent Auto 8.7 % (3-14); Neutrophils Absolute Auto 3200 /uL (1500-7000); Platelet Count 197 X10^3/uL (150-400); Red Cell Distribution Width 13.5 % (11.6-14.8); White Blood Cell Count 6.3 X10^3/uL (4.5-11.0)
[2024-11-14 12:13] LABS: PTT Partial Thromboplastin Tim 32 SECONDS (25.1-36.5)
[2024-11-14 12:15] LABS: Alanine Aminotransferase 35 IU/L (<50); Albumin 4.6 g/dL (3.5-5.0); Albumin Globulin Ratio 1.5 (1.0-2.8); Alkaline Phosphatase 55 U/L (38-126); Aspartate Aminotransferase 36 IU/L (17-59); BUN Creatinine Ratio 15.3 (6-22); Bilirubin Total 0.7 mg/dL (0.2-1.3); Blood Urea Nitrogen 20 mg/dL (9-20); Calcium 9.5 mg/dL (8.4-10.2); Carbon Dioxide 25 mmol/L (22-32); Chloride 107 mmol/L (98-107); Creatine Kinase 153 U/L (55-170); Estimated Glomerular Filt Rate > 60 mL/min (>60); Globulin 3.1 g/dL (1.7-4.1); Glucose 108 mg/dL (80-110); HEMOLYSIS < 15 (0-50); Potassium 4.6 mmol/L (3.4-5.1); Sodium 138 mmol/L (137-145); Total Protein 7.7 g/dL (6.3-8.2)
--- NOTE | 2024-11-14 12:25 | PC.NURSE ---
This nurse escorted pt to CT and Xray then to Room to complete setting pt up on monitor system. Left room after primary nurse arrived.
[2024-11-14 12:26] LABS: Troponin I < 0.012 ng/mL (0.01-0.034)
--- NOTE | 2024-11-14 12:29 | EKG_ITS ---
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
--- NOTE | 2024-11-14 12:33 | PC.NURSE ---
See [facility] documentation. Patient has hx of stroke 8 years ago where he was given TPA. All s/sx resolved from that episode. 1 year ago, patient had a TIA and was seen here in the ER. Today the patient was in [employer] and had numbness in right leg, double vision when both eyes open and some numbness in his right cheek. Patient reports all symptoms have resolved. He took 2 low dose baby aspirins [employer].
[2024-11-14 12:41] LABS: UR Morphine/Opiate cutoff 300 Negative (Negative); Ur Creatinine Normal (Normal); Ur Specific Gravity Normal (Normal); Urine Amphetamines Negative (Negative); Urine Barbiturates Negative (Negative); Urine Benzodiazepines Negative (Negative); Urine Cocaine Negative (Negative); Urine MDMA Negative (Negative); Urine Methadone Negative (Negative); Urine Methamphetamines Negative (Negative); Urine Oxycodone Negative (Negative); Urine Phencyclidine Negative (Negative); Urine Tetrahydrocannabinol Negative (Negative); Urine Tricyclic Antidepressant Negative (Negative); Urine pH Normal (Normal)
--- NOTE | 2024-11-14 12:54 | ED.NEUROSD ---
HPI - Neuro Symptoms/Deficit General Chief Complaint: Neuro Symptoms/Deficit Stated Complaint: poss TIA Time Seen by Provider: 11/14/24 12:04 Source: patient Mode of arrival: Ambulatory History of Present Illness HPI Narrative: 64-year-old right-handed male with history of stroke status post tPA 8 years ago, at that time had left-sided weakness symptoms, seemed to have recovery, last year had TIA workup which was negative, not taking aspirin, today at [employer] was at service a proximally 10:20 a.m. when he had sensation of double vision, numbness to his right face and right arm, lasting about 20 minutes, had improved, driven home by his who then administered to baby aspirin by mouth, here for further evaluation. No residual symptoms. During the event there was no associated chest pain or shortness of breath, he had some lightheadedness. No focal weakness to face arm or leg. On Anticoagulants: No Related Data Home Medications Medication Instructions Recorded Confirmed albuterol sulfate 90 mcg/actuation 1 inh inhalation ONCE 06/02/24 06/02/24 aerosol inhaler atorvastatin 40 mg tablet 20 mg PO DAILY 11/14/24 11/14/24 clonazepam 0.5 mg tablet 0.5 mg PO DAILY PRN Insomnia 11/14/24 11/14/24 salmeterol 50 mcg/dose blister 1 inh inhalation BID 11/14/24 11/14/24 powder for inhalation (Serevent Diskus) zolpidem 10 mg tablet 10 mg PO ONCE PM PRN Insomnia 11/14/24 11/14/24 Allergies Allergy/AdvReac Type Severity Reaction Status Date / Time No Known Drug Allergies Allergy Verified 08/28/24 16:56 Review of Systems Hematologic/Lymphatic On Anticoagulants: No Patient History Medical History Insomnia Dyslipidemia Asthma Social History Smoking Status: Never smoker Smoking Status: Never smoker alcohol intake frequency: 0-2 drinks per day Alcohol type: other Exam Narrative Exam Narrative: GENERAL: Well-developed patient, in mild distress. HEAD: Atraumatic. Normocephalic. EYES: Pupils equal round and reactive. Extraocular motions intact. No scleral icterus. No injection or drainage. ENT: Nose without bleeding, purulent drainage. Throat without erythema, tonsillar hypertrophy or exudate. Airway patent. NECK: Trachea midline. Non tender CARDIOVASCULAR: Regular rate and rhythm without murmurs, gallops, or rubs. RESPIRATORY: Clear to auscultation. Breath sounds equal bilaterally. No wheezes, rales, or rhonchi. GASTROINTESTINAL: Abdomen soft, non-tender, nondistended. EXTREMITIES: No edema or joint tenderness. BACK: Nontender without deformity or crepitance. No flank tenderness. NEURO: Alert, cooperative. Motor 5/5 upper extremities and lower extremities. Cranial nerve exam unremarkable. Sensation intact to face arm or leg. Finger to nose testing normal both sides. SKIN: No rash or erythema of visible areas Initial Vital Signs Initial Vital Signs: Vital Signs Temperature 96.3 F L 11/14/24 11:47 Pulse Rate 66 11/14/24 11:47 Respiratory Rate 99 H 11/14/24 11:47 Blood Pressure 160/94 H 11/14/24 11:47 Pulse Oximetry 99 11/14/24 11:47 Oxygen Delivery Method Room Air 11/14/24 11:47 Course Orders Ordered: ED Orders 11/14/24 11:55 Complete Blood Count AUTO DIFF Stat Comprehensive Metabolic Panel Stat Magnesium Stat PTT Partial Thromboplastin [place] Stat Prothrombin Time INR Stat Troponin & CK Cardiac Panel Stat Urine Drug Screen, Rapid Stat 11/14/24 11:56 CT Stroke Stat XR chest 1V Stat EKG-12 Lead Stat 11/14/24 12:04 CT angio head and neck Stat 11/14/24 13:51 MR head/brain wo con Stat Discontinued Medications Ondansetron HCl (Ondansetron 4 Mg/2 Ml Inj) 4 mg IV NOW PRN PRN Reason: Nausea And Vomiting Ondansetron HCl (Ondansetron 4 Mg Odt) 4 mg SL NOW PRN PRN Reason: Nausea And Vomiting Vital Signs Vital signs: Vital Signs - 8 hr 11/14/24 12:21 11/14/24 12:22 11/14/24 12:22 Pulse Rate 87 68 Respiratory Rate 24 Blood Pressure 142/86 H Pulse Oximetry 99 99 Oxygen Delivery Method 11/14/24 12:30 11/14/24 12:30 11/14/24 13:00 Pulse Rate 59 L Respiratory Rate 20 Blood Pressure 138/86 126/81 Pulse Oximetry 98 Oxygen Delivery Method 11/14/24 13:00 11/14/24 13:30 11/14/24 13:40 Pulse Rate 59 L 59 L Respiratory Rate 16 24 Blood Pressure 135/85 Pulse Oximetry 97 99 Oxygen Delivery Method 11/14/24 13:40 11/14/24 14:00 11/14/24 14:30 Pulse Rate 59 L 60 66 Respiratory Rate 21 24 Blood Pressure Pulse Oximetry 98 97 98 Oxygen Delivery Method 11/14/24 15:00 11/14/24 15:08 11/14/24 15:41 Pulse Rate 56 L 54 L 104 H Respiratory Rate 15 14 Blood Pressure 135/85 Pulse Oximetry 97 97 91 Oxygen Delivery Method Room Air 11/14/24 16:00 11/14/24 16:30 11/14/24 16:39 Pulse Rate 61 61 Respiratory Rate Blood Pressure 141/92 H Pulse Oximetry 99 99 Oxygen Delivery Method 11/14/24 16:39 Pulse Rate 62 Respiratory Rate 22 Blood Pressure Pulse Oximetry 98 Oxygen Delivery Method MDM - Neuro Symptoms/Deficit Lab Data 11/14/24 11:55 11/14/24 11:55 Labs: Lab Results 11/14/24 Range/Units 11:55 WBC 6.3 (4.5-11.0) X10^3/uL RBC 4.70 (4.5-5.9) X10^6/uL Hgb 15.2 (13.5-17.5) g/dL Hct 44.9 (41-53) % MCV 95.5 (80-100) fL MCH 32.4 (26-34) PG MCHC 33.9 (30-36) % RDW 13.5 (11.6-14.8) % Plt Count 197 (150-400) X10^3/uL Neut % (Auto) 51.0 (50-75) % Lymph % (Auto) 34.8 (25-40) % Davison % (Auto) 8.7 (3-14) % Eos % (Auto) 4.2 H (2-4) % Baso % (Auto) 1.3 (0-2) % Neut # (Auto) 3200 (8643-1678) /uL Lymph # (Auto) 2200 (4697-1080) /uL Davison # (Auto) 500 (0-900) /uL Eos # (Auto) 300 (0-450) /uL Baso # (Auto) 100 (0-100) /uL PT 11.3 (9.4-12.5) SECONDS INR 1.0 (0.9-1.3) APTT 32 (25.1-36.5) SECONDS Sodium 138 (137-145) mmol/L Potassium 4.6 (3.4-5.1) mmol/L Chloride 107 (98-107) mmol/L Carbon Dioxide 25 (22-32) mmol/L BUN 20 (9-20) mg/dL Creatinine 1.31 H (0.66-1.25) mg/dL Estimated GFR > 60 (>60) mL/min BUN/Creatinine Ratio 15.3 (6-22) Glucose 108 (80-110) mg/dL Calcium 9.5 (8.4-10.2) mg/dL Magnesium 2.0 (1.6-2.3) mg/dL Total Bilirubin 0.7 (0.2-1.3) mg/dL AST 36 (17-59) IU/L ALT 35 (<50) IU/L Alkaline Phosphatase 55 (38-126) U/L Total Creatine Kinase 153 (55-170) U/L Troponin I < 0.012 (0.01-0.034) ng/mL Total Protein 7.7 (6.3-8.2) g/dL Albumin 4.6 (3.5-5.0) g/dL Globulin 3.1 (1.7-4.1) g/dL Albumin/Globulin Ratio 1.5 (1.0-2.8) U Opiates 300ng/mL cut Negative (Negative) Ur Oxycodone Screen Negative (Negative) Urine Methadone Screen Negative (Negative) Ur Barbiturates Screen Negative (Negative) U Tricyclic Antidepress Negative (Negative) Ur Phencyclidine Scrn Negative (Negative) Ur Amphetamines Screen Negative (Negative) U Methamphetamines Scrn Negative (Negative) Ur MDMA Scrn (Ecstasy) Negative (Negative) U Benzodiazepines Scrn Negative (Negative) Urine Cocaine Screen Negative (Negative) U Marijuana (THC) Screen Negative (Negative) Urine pH Normal (Normal) Urine Specific [place] Normal (Normal) Ur Creatinine Normal (Normal) Point of Care Testing Glucose POC 101 Urine Dip Bedside Urine Glucose Negative Bedside Urine Bilirubin - Negative Bedside Urine Ketone - Negative Urine Specific [place] 1.005 Bedside Urine Occult Blood - Negative Bedside Urine pH 6.0 Bedside Urine Protein - Negative Bedside Urine Nitrite - Negative Bedside Urine Leukocytes - Negative Esterase Imaging Data CT scan - head: Radiologist's Impression: [place] [address] CT Scan Report Signed Patient: Sebastian Bruno MR#: [id number] : 1960 Acct:[id number] Age/Sex: 64 / M Date of Service: 11/14/24 Loc: ED Accession Number: [id number] Procedure: CT Stroke Ordering Provider: Bridger Bang MD PROCEDURE: CT STROKE INDICATIONS: Positive BE-FAST, Stroke symptoms TECHNIQUE: Noncontrast 4.5 mm thick angled axial sections acquired from the foramen magnum to the vertex, with coronal reformats. For radiation dose reduction, the following was used: automated exposure control, adjustment of mA and/or kV according to patient size. COMPARISON: None. FINDINGS: Image quality: Diagnostic. CSF spaces: Basal cisterns are patent. No extra-axial fluid collections. Ventricles are normal in size and shape. Brain: No midline shift. No intracranial masses or hemorrhage. Romero-white matter interface is normal. Skull and face: Calvarium and visualized facial bones are intact, without suspicious lesions. Sinuses: Visualized sinuses and mastoids are clear. IMPRESSION: No acute intracranial pathology. Findings were discussed with ordering ED provider Dr. Bang by Dr. Branch at 12:16p.m. on 11/14/2024. This study fulfills neurological imaging criteria for inclusion or exclusion of acute stroke therapies based on available published neurological imaging guidelines. Approved by: Kimber Branch M.D.,Ph.D. on 11/14/2024 at 12:16 CTA - brain/neck: Radiologist's Impression: Close Brain MRI 11/14/24 Head/Neck CTA (Signed) Jhonathan Castellanos - 11/14/[address] (Signed) Kimber Branch - 11/14/24 Chest X-Ray (Signed) Kimber Branch - 11/14/24 Launch?Image [address] [address] [address] Scan Report Signed Patient: Sebastian Bruno MR#: [id number] : 1960 Acct:[id number] Age/Sex: 64 / M Date of Service: 11/14/24 Loc: Accession Number: [id number] Procedure: CT angio head and neck Ordering Provider: Bridger Bang MD PROCEDURE: CT ANGIO HEAD AND NECK INDICATIONS: TIA symptoms TECHNIQUE: After the administration of intravenous contrast, 1 mm thick sections acquired from the aortic arch through the [place]. 3-dimensional sjpjucj-tkqkeucfe-mlbooknfiq (MIP) and/or volume rendering reformats were acquired of the central intracranial vasculature and neck separately. For radiation dose reduction, the following was used: automated exposure control, adjustment of mA and/or kV according to patient size. COMPARISON: [facility], MR, MR STROKE, 02/29/2024, 15:20. [facility], CT, CT HEAD/BRAIN WO CON, 02/26/2024, 10:17. [facility], CT, CT STROKE, 11/14/2024, 11:57. [facility], CT, CT ANGIO HEAD AND NECK, 02/26/2024, 10:17. FINDINGS: Image quality: Limited by bolus timing, with venous contamination. BRAIN: CSF spaces: Ventricles are normal in size and shape. Basal cisterns are patent. No extra-axial fluid collections. Brain: No significant abnormality of the brain can be seen. Skull and face: Calvarium and facial bones appear intact, without suspicious lesions. Orbits appear normal. Sinuses: Sinuses and mastoids are clear. HEAD CT ANGIOGRAPHY: Anterior circulation: Intracranial internal carotid arteries are normal in size and flow. The flow within the paired anterior cerebral arteries is normal and symmetric. The flow within the middle cerebral arteries is normal and symmetric. The anterior communicating artery is seen. No aneurysms are seen. Posterior circulation: Visualized portions of the vertebral arteries demonstrate normal caliber, and join to form a normal appearing basilar artery. There is a prominent left posterior communicating artery seen, with an accompanying diminutive left P1 segment. This is attributed to a type origin of the right posterior cerebral artery, which is considered to be a normal developmental variant of typically no clinical consequence. The flow within the posterior cerebral arteries is normal and symmetric. No aneurysms are seen. NECK CT ANGIOGRAPHY: Carotid system: The great vessels demonstrate a conventional anatomy as they arise from the aortic arch. The origins of the common carotid arteries appear patent. The common carotid arteries demonstrate normal caliber and courses. The bifurcation regions are both widely patent. The internal carotid arteries demonstrate normal calibers and courses. Posterior circulation: The origins of the vertebral arteries both appear widely patent. The more superior extracranial portions of both vertebral arteries also demonstrate normal courses and calibers. The right vertebral artery is dominant to the left. Soft tissues: Visualized neck soft tissues demonstrate no suspicious abnormalities. Bones: No suspicious bony lesions. Visualized cervical spine appears normally aligned. IMPRESSION: No significant intracranial arterial abnormality is seen. No significant abnormality is seen within the arteries of the neck. Additional findings: Flullw-hw-Lstwec developmental anomalies Any quantitative measurements of stenosis were performed using NASCET criteria. Dictated by: Jhonathan Castellanos M.D. on 11/14/2024 at 11:47 Approved by: Jhonathan Castellanos M.D. on 11/14/2024 at 11:50 MRI brain: Radiologist's Impression: Close Brain MRI (Signed) Jhonathan Castellanos - 11/14/24 Head/Neck CTA (Signed) Jhonathan Castellanos - 11/14/[address] (Signed) SarinaKimber - 11/14/24 Chest X-Ray (Signed) HarwoodKimber - 11/14/24 Launch?[place] [address] Magnetic Resonance Report Signed Patient: Sebastian Bruno MR#: [id number] : 1960 Acct:[id number] Age/Sex: 64 / M Date of Service: 11/14/24 Loc: ED Accession Number: [id number] Procedure: MR head/brain wo con Ordering Provider: Bridger Bang MD PROCEDURE: MR HEAD/BRAIN WO CON INDICATIONS: TIA symptoms TECHNIQUE: Non-contrast axial T1 spin echo, axial T2 fast spin echo, sagittal and axial FLAIR, coronal T2 fast spin echo, axial gradient echo, axial diffusion and ADC through the brain. COMPARISON: [facility], MR, MR STROKE, 02/29/2024, 15:20. [facility], CT, CT ANGIO HEAD AND NECK, 11/14/2024, 12:12. [facility], CT, CT STROKE, 11/14/2024, 11:57. FINDINGS: Image quality: Excellent. CSF spaces: Ventricles appear symmetric in size and shape. Basal cisterns are patent. No extra-axial fluid collections. Brain: No intracranial bleeds or mass effects. There is cerebral volume loss for age. There are periventricular and deep white matter chronic small vessel ischemic changes. Brainstem appears normal. Diffusion-weighted images show no acute infarct. No chronic ischemic insults. Normal intravascular flow voids are present. Skull and face: Calvarial bone marrow is normal in signal. Orbits are normal. Sinuses: Sinuses and mastoids are clear. IMPRESSION: No findings of acute or subacute infarction can be seen. Dictated by: Jhonathan Castellanos M.D. on 11/14/2024 at 15:14 Approved by: Jhonathan Castellanos M.D. on 11/14/2024 at 15:15 ECG Data Attestation: I personally reviewed and interpreted this ECG as follows: Interpretation: 1229, sinus bradycardia with rate 56, no obvious ST segment elevation or depression changes. MT 186, QRS 112, QTC 370. MDM Narrative Medical decision making narrative: 64-year-old male with history of remote stroke status post tPA years ago with left-sided symptoms at that time, TIA symptoms a year ago with negative imaging, not taking antiplatelet regimen or other anticoagulants, at alevism today had about 20 minute episode of double vision along with right-sided facial numbness, took baby aspirin prior to arrival. Symptoms have resolved EKG shows normal sinus rhythm, no obvious ischemic changes, electrolytes unremarkable, glucose normal. CT head noncontrast study, no acute changes. See radiology report. CT angiogram head and neck vessels, [place] normal variant, no acute changes. See radiology report. 1615, MRI brain study ordered, and has been performed, report pending. MRI study showed no acute changes. See radiology report. Copy of all imaging reports given to the patient with discussion. Discussed admission for further monitoring and perhaps cardiac echocardiogram, though he likely has had this with his previous TIA/stroke workups, though this could be done. Declines admission and further observation here. We would like to be discharged home with family, concurs with patient decision. Further workup as an outpatient for now. Encouraged patient to consider aspirin one tablet daily antiplatelet regimen for now. Return precautions discussed. Home with family Discharge Plan Departure Patient Disposition: Home Clinical Impression: Transient ischemic attack, Diplopia, Right facial numbness Activity Restrictions/Additional Instructions: History of prior stroke 8 years ago status post tPA therapy with predominant left-sided symptoms that resolved, TIA symptoms about last year with negative reported workup, now with 20 minutes duration of double vision along with right-sided facial numbness that seemed to resolve, aspirin taken orally prior to arrival but not regularly or daily. CT scan head study showed no acute changes. CT angiogram head and neck vessels showed no narrowing or thromboses or acute changes, though there was a normal variant change that happened to be noticed around the [place], that is not directly related to any of your symptoms today. MRI of the brain showed no stroke changes or acute changes. Copies of all these radiology reports were provided to you. We discussed further evaluation here that might include overnight admission on telemetry, cardiac echocardiogram ultrasound, declined for now. Further workup as an outpatient for now. Advised taking 1 aspirin daily for now. Follow up with your the your regular doctor advised this next week to coordinate further follow up as an outpatient. Continue your chronic medications for now. Return to this/nearest emergency department for any change worsening symptoms or any concerns prior Also regarding the double vision that was transient, consider follow up with your eye doctor early next week to see if there is any intra-ocular concerns related to your transient visual changes. 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
--- NOTE | 2024-11-14 13:51 | DI.MRI.S_ITS ---
PROCEDURE: MR HEAD/BRAIN WO CON INDICATIONS: TIA symptoms TECHNIQUE: Non-contrast axial T1 spin echo, axial T2 fast spin echo, sagittal and axial FLAIR, coronal T2 fast spin echo, axial gradient echo, axial diffusion and ADC through the brain. COMPARISON: [facility], MR, MR STROKE, 02/29/2024, 15:20. [facility], CT, CT ANGIO HEAD AND NECK, 11/14/2024, 12:12. [facility], CT, CT STROKE, 11/14/2024, 11:57. FINDINGS: Image quality: Excellent. CSF spaces: Ventricles appear symmetric in size and shape. Basal cisterns are patent. No extra-axial fluid collections. Brain: No intracranial bleeds or mass effects. There is cerebral volume loss for age. There are periventricular and deep white matter chronic small vessel ischemic changes. Brainstem appears normal. Diffusion-weighted images show no acute infarct. No chronic ischemic insults. Normal intravascular flow voids are present. Skull and face: Calvarial bone marrow is normal in signal. Orbits are normal. Sinuses: Sinuses and mastoids are clear. IMPRESSION: No findings of acute or subacute infarction can be seen. Dictated by: Jhonathan Castellanos M.D. on 11/14/2024 at 15:14 Approved by: Jhonathan Castellanos M.D. on 11/14/2024 at 15:15
== END 2024-11-14 16:54 | disposition home or self-care (01) ==
PROVIDERS: Emergency Provider Emergency Medicine; PCP Family Medicine
DX: G45.9 Transient cerebral ischemic attack, unspecified (principal); H53.2 Diplopia; R20.0 Anesthesia of skin; Z86.73 Personal history of transient ischemic attack (TIA), and cerebral infarction without residual deficits
CPT/HCPCS: 36415; 70450; 70496; 70498; 70551; 71045; 80053; 80305; 81003; 82550; 82962; 83735; 84484; 85025; 85610; 85730; 93005; 99284; Q9967